=== PATIENT | male | born 1945 | race Caucasian/White ===

== ENCOUNTER 2023-01-21 07:01 | Day surgery (SDC) | payer MEDICARE ==
[~2023-01-21 07:01] MED LIST: Lactated Ringers 1,000 ML IV SCH; Sodium Chloride 0.9% 10 ML Syringe FLUSH PRN
[2023-01-21] MEDS ORDERED: Propofol 200 MG/20 ML SDV IV ONE (07:02)
[2023-01-21] MEDS ORDERED: Albuterol 6.7 GM Inhaler INH ONE (07:02)
[2023-01-21] MEDS ORDERED: Lidocaine 2% 5 ML SDV IV ONE (07:02)
[2023-01-21] MEDS ORDERED: Simethicone Drops 40 MG/0.6 ML 30 ML Bottle PO ONE (08:10)
[2023-01-23 00:30] LABS: LACTOFERRIN,FECAL BY ELISA Negative (Negative)
[2023-01-24 00:55] LABS: ADENOVIRUS 40/41 PCR Not Detected; ASTROVIRUS PCR Not Detected; CAMPYLOBACTER PCR Not Detected; CRYPTOSPORIDIUM PCR Not Detected; CYCLOSPORA CAYETANENSIS PCR Not Detected; ENTAMOEBA HISTOLYTICA PCR Not Detected; ENTEROAGGREGATIVE E. COLI PCR Not Detected; ENTEROPATHOGENIC E. COLI PCR Not Detected; ENTEROTOXIGENIC E. COLI PCR Not Detected; GIARDIA LAMBLIA PCR Not Detected; NOROVIRUS GI/GII PCR Not Detected; PLESIOMONAS SHIGELLOIDES PCR Not Detected; ROTAVIRUS A PCR Not Detected; SALMONELLA PCR Not Detected; SAPOVIRUS PCR Not Detected; SHIG/ENTEROINVASIVE E COLI PCR Not Detected; SHIGA TOXIN-PRODUC E. COLI PCR Not Detected; VIBRIO CHOLERAE PCR Not Detected; VIBRIO PCR Not Detected; YERSINIA ENTEROCOLITICA PCR Not Detected
== END 2023-01-21 10:15 | disposition home or self-care (01) ==
LOC: FB.SDS 07:01
PROVIDERS: ATTEND Surgery
DX: R19.7 Diarrhea, unspecified (principal); K64.2 Third degree hemorrhoids; R63.4 Abnormal weight loss; K40.20 Bilateral inguinal hernia, without obstruction or gangrene, not specified as recurrent; K42.9 Umbilical hernia without obstruction or gangrene; F41.9 Anxiety disorder, unspecified; N40.0 Benign prostatic hyperplasia without lower urinary tract symptoms; J44.9 Chronic obstructive pulmonary disease, unspecified; F32.A Depression, unspecified; M10.9 Gout, unspecified; E78.5 Hyperlipidemia, unspecified; I10 Essential (primary) hypertension; E03.9 Hypothyroidism, unspecified; Z86.010 Personal history of colon polyps; Z79.01 Long term (current) use of anticoagulants; Z79.899 Other long term (current) drug therapy; Z79.890 Hormone replacement therapy; Z88.0 Allergy status to penicillin; Z88.8 Allergy status to other drugs, medicaments and biological substances; Z79.52 Long term (current) use of systemic steroids; Z87.891 Personal history of nicotine dependence
CPT/HCPCS: 00811; 83630; 87507; A9270-GY; J2704; J7120